=== PATIENT | male | born 1990 | race Caucasian/White ===

== ENCOUNTER 2019-08-09 12:55 | Emergency (ER) | payer OTHER, SELFPAY ==
[2019-08-09 13:04] VITALS: BP 172/95; PULSE 134; RESP 21; TEMP 36.5; O2SAT 99; BMI 31.3
[2019-08-09 13:15] VITALS: BP 172/95; PULSE 139; RESP 17; O2SAT 99
--- NOTE | 2019-08-09 13:27 | DI.RAD.S_ITS ---
PROCEDURE: XR CHEST 1V INDICATIONS: Cough TECHNIQUE: One view of the chest was acquired. COMPARISON: None. FINDINGS: Surgical changes and devices: None. Lungs and pleura: Lungs are clear. No pleural effusions or pneumothorax. Mediastinum: Mediastinal contours appear normal. Heart size is normal. Bones and chest wall: No suspicious bony lesions. Overlying soft tissues appear unremarkable. Old healed right rib fracture. IMPRESSION: No evidence acute pulmonary process. Dictated by: Alberto Bruce M.D. on 08/09/2019 at 13:57 Approved by: Alberto Bruce M.D. on 08/09/2019 at 14:15
--- NOTE | 2019-08-09 13:34 | ED_ITS ---
HPI - Allergic Reaction <YANG Santizo - Last Filed: 08/09/19 18:52> General Chief complaint: Allergic Reaction Stated complaint: sob/when working yesturday/hives Time Seen by Provider: 08/09/19 12:56 Source: patient Mode of arrival: Ambulatory Limitations: no limitations History of Present Illness HPI narrative: 29-year-old male presenting to the emergency department complaining of hives, cough, and feeling like his throat is swollen. Patient states he was vacuuming dust yesterday and later that evening developed hives. This morning he woke up noticing a cough, some shortness of breath, and feeling like his throat is swollen. He took 25 mg of Benadryl before coming to the emergency department. He denies any history of allergies. He does report a cough but states that he is a current smoker and denies any changes to his cough recently. He also reported chills this morning. Patient denies any chest pain, abdominal pain, nausea, vomiting, diarrhea, dizziness, or any other concerns. Patient denies any other health problems or significant allergies. Patient does report that he drinks alcohol often. Related Data Previous Rx's Medication Instructions Recorded epinephrine [EpiPen 2-Gregorio] 0.3 mg IM Q5-15M PRN #2 each 08/09/19 prednisone 40 mg PO DAILY #5 tab 08/09/19 Allergies Allergy/AdvReac Type Severity Reaction Status Date / Time No Known Drug Allergies Allergy Verified 08/09/19 13:38 Review of Systems <YANG Santizo - Last Filed: 08/09/19 18:52> Review of Systems Narrative: REVIEW OF SYSTEMS: GENERAL: Denies fevers. HENT: No head trauma or hearing loss. Reports throat swelling, see HPI. EYES: No vision changes. CARDIOVASCULAR: No chest pain or syncope. RESPIRATORY: No shortness of breath. Reports cough which is usual for him, see HPI. GASTROINTESTINAL: No nausea, vomiting, diarrhea, or constipation. MUSCULOSKELETAL: No weakness or injury. INTEGUMENTARY: No rash, lesions, or pruritus. Patient History <YANG Santizo - Last Filed: 08/09/19 18:52> Medical History Alcohol use (Acute) Social History Smoking Status: Current every day smoker Smoking Status: Current every day smoker tobacco type: cigarettes alcohol intake frequency: 3 or more drinks per day Alcohol type: beer Substance Use Type: does not use Exam <YANG Santizo - Last Filed: 08/09/19 18:52> Initial Vital Signs Initial Vital Signs: Vital Signs Temperature 97.7 F 08/09/19 13:04 Pulse Rate 134 H 08/09/19 13:04 Respiratory Rate 21 08/09/19 13:04 Blood Pressure 172/95 H 08/09/19 13:04 Pulse Oximetry 99 08/09/19 13:04 PHYSICAL EXAMINATION: GENERAL: Well groomed, alert, and cooperative. Appears flushed, red in arms and face. Answers questions promptly and appropriately. Vital signs noted. HENT: Normocephalic, atraumatic. Ear canals patent. Oropharynx without erythema, tonsils not present. No drooling. EYES: Conjunctiva pink, sclera white, no periorbital swelling. No discharge. CHEST: Normal to inspection and without deformities. CARDIOVASCULAR: S1 and S2 sounds normal. Tachycardia, no murmurs. RESPIRATORY: Normal respiratory rate, trachea midline, airway patent. No stridor, nasal flaring or accessory muscle use. Able to speak in full sentences. Lungs are clear in all [place] without wheeze, rhonchi, or crackles. Occasional dry cough noted. MUSCULOSKELETAL: Normal gait and coordination. Equal tone and mass bilaterally. EXTREMITIES: Moves all extremities. SKIN: Warm, dry, soft, appropriate color for ethnicity. No lesions, rashes, or wounds to visualized areas. NEURO: Alert and Oriented X 3. Good coordination. No ataxia or cognitive issues. PSYCH: Appropriate affect and mood. <Eliza Patricia DO - Last Filed: 08/10/19 07:51> Initial Vital Signs Initial Vital Signs: Vital Signs Temperature 97.7 F 08/09/19 13:04 Pulse Rate 134 H 08/09/19 13:04 Respiratory Rate 21 08/09/19 13:04 Blood Pressure 172/95 H 08/09/19 13:04 Pulse Oximetry 99 08/09/19 13:04 Course <YANG Santizo - Last Filed: 08/09/19 18:52> Course Course Narrative: Patient was given fluids, Solu-Medrol, Benadryl, Pepcid, and epi IM. Patient reported a small improvement after epi administration, he stated, my throat feels less scratchy. Patient reported feeling significantly better after fluids Solu-Medrol, Pepcid, and Benadryl. Patient's flushed demeanor resolved. Orders Ordered: Discontinued Medications Diphenhydramine HCl (Benadryl) 25 mg IV NOW ONE Stop: 08/09/19 13:28 Last Admin: 08/09/19 13:35 Dose: 25 mg Documented by: TAVARES Epinephrine HCl (Adrenalin) 0.3 mg IM NOW ONE Stop: 08/09/19 13:49 Last Admin: 08/09/19 14:00 Dose: Not Given Documented by: EDUARDO Sodium Chloride (Normal Saline 0.9%) 1,000 mls @ 1,000 mls/hr IV BOLUS ONE Stop: 08/09/19 14:26 Last Infusion: 08/09/19 15:09 Dose: 0 mls/hr Documented by: Admin: 08/09/19 13:36 Dose: 1,000 mls/hr Documented by: TAVARES Famotidine (Pepcid) 20 mg in 50 mls @ 200 mls/hr IV NOW ONE Stop: 08/09/19 14:02 Last Infusion: 08/09/19 14:36 Dose: 0 mls/hr Documented by: Admin: 08/09/19 14:05 Dose: 200 mls/hr Documented by: CONSUELO Methylprednisolone (Solu-Medrol 125 Mg Vial) 125 mg IV NOW ONE Stop: 08/09/19 13:28 Last Admin: 08/09/19 13:35 Dose: 125 mg Documented by: TAVARES Consultations Consultation #1: Patient staffed with Dr. Patricia, discussed medication administration on discharge. Vital Signs Vital signs: Vital Signs - 8 hr 08/09/19 13:04 08/09/19 13:15 08/09/19 13:45 Temperature 97.7 F Pulse Rate 134 H 139 H 107 H Respiratory Rate 21 17 22 Blood Pressure 172/95 H Blood Pressure [Right Arm] 172/95 H 155/74 H Pulse Oximetry 99 99 99 08/09/19 14:30 08/09/19 15:00 08/09/19 15:19 Temperature Pulse Rate 103 H 100 H 107 H Respiratory Rate 17 Blood Pressure 129/64 Blood Pressure [Right Arm] 134/63 129/64 Pulse Oximetry 99 99 98 <Eliza Patricia, DO - Last Filed: 08/10/19 07:51> Orders Ordered: Discontinued Medications Diphenhydramine HCl (Benadryl) 25 mg IV NOW ONE Stop: 08/09/19 13:28 Last Admin: 08/09/19 13:35 Dose: 25 mg Documented by: TAVARES Epinephrine HCl (Adrenalin) 0.3 mg IM NOW ONE Stop: 08/09/19 13:49 Last Admin: 08/09/19 14:00 Dose: Not Given Documented by: EDUARDO Sodium Chloride (Normal Saline 0.9%) 1,000 mls @ 1,000 mls/hr IV BOLUS ONE Stop: 08/09/19 14:26 Last Infusion: 08/09/19 15:09 Dose: 0 mls/hr Documented by: Admin: 08/09/19 13:36 Dose: 1,000 mls/hr Documented by: TAVARES Famotidine (Pepcid) 20 mg in 50 mls @ 200 mls/hr IV NOW ONE Stop: 08/09/19 14:02 Last Infusion: 08/09/19 14:36 Dose: 0 mls/hr Documented by: Admin: 08/09/19 14:05 Dose: 200 mls/hr Documented by: CONSUELO Methylprednisolone (Solu-Medrol 125 Mg Vial) 125 mg IV NOW ONE Stop: 08/09/19 13:28 Last Admin: 08/09/19 13:35 Dose: 125 mg Documented by: TAVARES Vital Signs Vital signs: Vital Signs - 8 hr 08/09/19 13:04 08/09/19 13:15 08/09/19 13:45 Temperature 97.7 F Pulse Rate 134 H 139 H 107 H Respiratory Rate 21 17 22 Blood Pressure 172/95 H Blood Pressure [Right Arm] 172/95 H 155/74 H Pulse Oximetry 99 99 99 08/09/19 14:30 08/09/19 15:00 08/09/19 15:19 Temperature Pulse Rate 103 H 100 H 107 H Respiratory Rate 17 Blood Pressure 129/64 Blood Pressure [Right Arm] 134/63 129/64 Pulse Oximetry 99 99 98 MDM - Allergic Reaction < HedlinYANG - Last Filed: 08/09/19 18:52> Medical Records Attestation: I reviewed the patient's medical records. Lab Data Attestation: I reviewed the patient's lab results. Result diagrams: 08/09/19 13:00 08/09/19 13:00 Labs: Lab Results 08/09/19 08/09/19 Range/Units 13:00 13:00 WBC 12.7 H (4.5-11.0) X10^3/uL RBC 4.99 (4.5-5.9) X10^6/uL Hgb 16.9 (13.5-17.5) g/dL Hct 49.0 (41-53) % MCV 98.2 (80-100) fL MCH 33.9 (26-34) PG MCHC 34.5 (30-36) % RDW 12.8 (11.6-14.8) % Plt Count 304 (150-400) X10^3/uL Neut % (Auto) 80.3 H (50-75) % Lymph % (Auto) 12.4 L (25-40) % [place] % (Auto) 6.7 (3-14) % Eos % (Auto) 0.1 L (2-4) % Baso % (Auto) 0.5 (0-2) % Neut # (Auto) 82825 H (1640-4225) /uL Lymph # (Auto) 1600 (2181-3734) /uL [place] # (Auto) 800 (0-900) /uL Eos # (Auto) 0 (0-450) /uL Baso # (Auto) 100 (0-100) /uL Sodium 132 L (137-145) mmol/L Potassium 4.5 (3.4-5.1) mmol/L Chloride 96 L (98-107) mmol/L Carbon Dioxide 24 (22-32) mmol/L BUN 11 (9-20) mg/dL Creatinine 0.94 (0.66-1.25) mg/dL Estimated GFR > 60.0 (>60) mL/min BUN/Creatinine Ratio 11.7 (6-22) Glucose 117 H (70-100) mg/dL Calcium 9.6 (8.4-10.2) mg/dL Total Bilirubin 1.5 H (0.2-1.3) mg/dL AST 92 H (17-59) IU/L ALT 134 H (<50) IU/L Alkaline Phosphatase 135 H (38-126) U/L Total Creatine Kinase 204 H (55-170) U/L CK-MB (CK-2) 1.18 (<2.37) ng/mL CK-MB (CK-2) Rel Index 0.6 L (1.5-5.0) % Troponin I < 0.012 (0.01-0.034) ng/mL Total Protein 8.9 H (6.3-8.2) g/dL Albumin 5.0 (3.5-5.0) g/dL Globulin 3.9 (1.7-4.1) g/dL Albumin/Globulin Ratio 1.3 (1.0-2.8) ECG Data Interpretation: Sinus tachycardia, rate 118, AR interval 149, QTC 352. No ST elevation or ST depression. No ectopy. EKG viewed by Dr. Patricia. [facility] Narrative Medical decision making narrative: 29-[facility] what appears to be an allergic reaction. Patient had a sensation of throat swelling so IM epinephrine was given, he reported mild improvement. Solu-Medrol, Pepcid, Benadryl, and fluids were given and patient reported significant improvement, his flushed demeanor resolved after administration of medication. Patient originally presented with tachycardia in the 130 range so labs were drawn showing a white count of 12.7 which is very slightly elevated, chest x-ray was ordered to rule out infection, no cardiopulmonary etiology was seen. Liver enzymes were elevated, I suspect this is most likely due to chronic alcohol consumption. Frequent alcohol consumption may contribute to tachycardia as well. I suspect that patient symptoms are most likely caused by an allergic reaction due to resolution of symptoms after medication, no other signs of infection such as productive cough, rhinorrhea, fevers, chills, or other concerns. Less likely COVID-19 due to lack of shortness of breath, fever, cough, and resolution of symptoms after administration of prednisone and fluids. Patient was discharged with epinephrine, prednisone, and instructed to use loratadine. He was given very strict return. Patient agreed to plan of care verbalized understanding. <Eliza Patricia, DO - Last Filed: 08/10/19 07:51> Lab Data Labs: Lab Results 08/09/19 08/09/19 Range/Units 13:00 13:00 WBC 12.7 H (4.5-11.0) X10^3/uL RBC 4.99 (4.5-5.9) X10^6/uL Hgb 16.9 (13.5-17.5) g/dL Hct 49.0 (41-53) % MCV 98.2 (80-100) fL MCH 33.9 (26-34) PG MCHC 34.5 (30-36) % RDW 12.8 (11.6-14.8) % Plt Count 304 (150-400) X10^3/uL Neut % (Auto) 80.3 H (50-75) % Lymph % (Auto) 12.4 L (25-40) % [place] % (Auto) 6.7 (3-14) % Eos % (Auto) 0.1 L (2-4) % Baso % (Auto) 0.5 (0-2) % Neut # (Auto) 23518 H (3898-3875) /uL Lymph # (Auto) 1600 (1232-4666) /uL [place] # (Auto) 800 (0-900) /uL Eos # (Auto) 0 (0-450) /uL Baso # (Auto) 100 (0-100) /uL Sodium 132 L (137-145) mmol/L Potassium 4.5 (3.4-5.1) mmol/L Chloride 96 L (98-107) mmol/L Carbon Dioxide 24 (22-32) mmol/L BUN 11 (9-20) mg/dL Creatinine 0.94 (0.66-1.25) mg/dL Estimated GFR > 60.0 (>60) mL/min BUN/Creatinine Ratio 11.7 (6-22) Glucose 117 H (70-100) mg/dL Calcium 9.6 (8.4-10.2) mg/dL Total Bilirubin 1.5 H (0.2-1.3) mg/dL AST 92 H (17-59) IU/L ALT 134 H (<50) IU/L Alkaline Phosphatase 135 H (38-126) U/L Total Creatine Kinase 204 H (55-170) U/L CK-MB (CK-2) 1.18 (<2.37) ng/mL CK-MB (CK-2) Rel Index 0.6 L (1.5-5.0) % Troponin I < 0.012 (0.01-0.034) ng/mL Total Protein 8.9 H (6.3-8.2) g/dL Albumin 5.0 (3.5-5.0) g/dL Globulin 3.9 (1.7-4.1) g/dL Albumin/Globulin Ratio 1.3 (1.0-2.8) Discharge Plan Departure Patient Disposition: Home Clinical Impression: Allergic reaction Qualifiers: Encounter type: initial encounter Qualified Code(s): T78.40XA - Allergy, unspecified, initial encounter Discharge Date/Time: 08/09/19 15:24 Instructions: DI for Hives, DI for Adverse Drug Reaction -- Allergic Activity Restrictions/Additional Instructions: Thank you for entrusting me with your care today. As discussed, your symptoms were most likely caused by an allergic reaction. I have given you a medication called prednisone, this helps decrease your symptoms. I also recommend taking loratadine 10 mg for the next week in the morning to decreased allergic symptoms. I have given you an EpiPen, this for use if you develop a severe allergic reaction with throat swelling. Your liver enzymes are slightly elevated, this is most likely due to alcohol intake. Please follow-up with your primary care provider in the next 1-2 weeks for further evaluation Prescriptions: New prednisone 20 mg tablet 40 mg PO DAILY Qty: 5 RF: 0 epinephrine [EpiPen 2-Gregorio] 0.3 mg/0.3 mL auto-injector 0.3 mg IM Q5-15M PRN (Reason: anaphylaxis) Qty: 2 RF: 0
[2019-08-09] MEDS: diphenhydrAMINE 50 MG/ML VIAL 25 MG IV (13:35)
[2019-08-09] MEDS: methylPREDNISolone 125 MG/2 ML VIAL IV (13:35)
[2019-08-09] MEDS: SODIUM CHLORIDE 0.9% 1,000 ML 1000 ML IV (13:36)
[2019-08-09 13:39] LABS: Add Manual Diff / Slide Review NO; Basophils Absolute Auto 100 /uL (0-100); Basophils Percent Auto 0.5 % (0-2); Eosinophils Absolute Auto 0 /uL (0-450); Eosinophils Percent Auto 0.1 % (2-4); Hemoglobin 16.9 g/dL (13.5-17.5); Lymphocytes Absolute Auto 1600 /uL (1100-4500); Lymphocytes Percent Auto 12.4 % (25-40); Mean Corpuscular HGB Conc 34.5 % (30-36); Mean Corpuscular Hemoglobin 33.9 PG (26-34); Mean Corpuscular Volume 98.2 fL (80-100); Monocytes Absolute Auto 800 /uL (0-900); Monocytes Percent Auto 6.7 % (3-14); Neutrophils Absolute Auto 10200 /uL (1500-7000); Neutrophils Percent Auto 80.3 % (50-75); Platelet Count 304 X10^3/uL (150-400); Red Blood Cell Count 4.99 X10^6/uL (4.5-5.9); Red Cell Distribution Width 12.8 % (11.6-14.8); White Blood Cell Count 12.7 X10^3/uL (4.5-11.0)
[2019-08-09 13:45] VITALS: BP 155/74; BP 170/85; PULSE 107; PULSE 118; RESP 20; RESP 22; O2SAT 99
[2019-08-09 13:48] LABS: Alanine Aminotransferase 134 IU/L (<50); Albumin Globulin Ratio 1.3 (1.0-2.8); Alkaline Phosphatase 135 U/L (38-126); Aspartate Aminotransferase 92 IU/L (17-59); BUN Creatinine Ratio 11.7 (6-22); Bilirubin Total 1.5 mg/dL (0.2-1.3); Blood Urea Nitrogen 11 mg/dL (9-20); Calcium 9.6 mg/dL (8.4-10.2); Carbon Dioxide 24 mmol/L (22-32); Chloride 96 mmol/L (98-107); Creatine Kinase 204 U/L (55-170); Estimated Glomerular Filt Rate > 60.0 mL/min (>60); Globulin 3.9 g/dL (1.7-4.1); Glucose 117 mg/dL (70-100); HEMOLYSIS < 15 (0-50); Potassium 4.5 mmol/L (3.4-5.1); Sodium 132 mmol/L (137-145); Total Protein 8.9 g/dL (6.3-8.2)
[2019-08-09 13:58] LABS: Troponin I < 0.012 ng/mL (0.01-0.034)
[2019-08-09 14:03] LABS: CKMB % Relative Index 0.6 % (1.5-5.0); Creatine Kinase MB 1.18 ng/mL (<2.37)
[2019-08-09] MEDS: FAMOTIDINE 20 MG/50 ML PIGGYBACK 200 MG IV (14:05)
[2019-08-09 14:30] VITALS: BP 134/63; PULSE 103; O2SAT 99
[2019-08-09 15:00] VITALS: BP 129/64; PULSE 100; O2SAT 99
[2019-08-09 15:19] VITALS: BP 129/64; PULSE 107; RESP 17; O2SAT 98
== END 2019-08-09 15:24 | disposition home or self-care (01) ==
PROVIDERS: Emergency Provider Nurse Practitioner
DX: T78.40XA Allergy, unspecified, initial encounter (principal); R05 Cough; Y99.0 Civilian activity done for income or pay
CPT/HCPCS: 36415; 71045; 80053; 82550; 82553; 84484; 85025; 93005; 96361; 96365; 96375; 99284; J1200; J2930